=== PATIENT | male | born 1990 | race Caucasian/White ===

== ENCOUNTER 2016-11-09 20:32 | Emergency (ER) | payer SELFPAY ==
[2016-11-09 20:51] VITALS: BP 144/95; PULSE 78; RESP 16; TEMP 97.9; O2SAT 98
--- NOTE | 2016-11-09 20:52 | EDPHY ---
H & P Time Seen by Provider: 11/09/16 20:44 HPI/ROS: Chief Complaint: Bilateral ankle rash HPI: The patient presents to the ED with ankle rash which has been present for the past several weeks. The patient reports he developed this rash after working with heavy boots. The patient denies any prior history of diabetes or other significant medical problems. The patient denies IV drug use. The patient denies prior history of abscess or cellulitis. REVIEW OF SYSTEMS: Neuro: no headache, numbness, weakness Musculoskeletal: as above Skin: As above Source: Patient Exam Limitations: No limitations - Personal History Current Tetanus/Diphtheria Vaccine: Yes - Medical/Surgical History Hx Asthma: No Hx Chronic Respiratory Disease: No Hx Diabetes: No Hx Cardiac Disease: No Hx Renal Disease: No Hx Cirrhosis: No Hx Alcoholism: No Hx HIV/AIDS: No Hx Splenectomy or Spleen Trauma: No - Social History Smoking Status: Current every day smoker - Physical Exam Exam: General Appearance: Alert, no distress Eyes: Pupils equal and round no pallor or injection ENT, Mouth: Mucous membranes moist Respiratory: There are no retractions, lungs are clear to auscultation Cardiovascular: Regular rate and rhythm Gastrointestinal: Abdomen is soft and nontender, no masses, bowel sounds normal Neurological: A&O, normal motor function, normal sensory exam, normal cranial nerves Skin: Several pustular lesions noted to the skin around the ankle right greater than left suspicious for likely MRSA. No evidence of septic arthritis or necrotizing fasciitis clinically Musculoskeletal: Neck is supple nontender Extremities: symmetrical, full range of motion Allergies/Adverse Reactions: Sulfa (Sulfonamide Antibiotics) Allergy (Verified 11/09/16 20:45) PINK DYE Allergy (Uncoded 11/09/16 20:45) Home Medications: Medication Instructions Recorded Cbd 11/09/16 Cephalexin [Keflex] 500 mg PO QID #40 cap 11/09/16 Doxycycline Hyclate [Vibramycin 100 mg PO BID #20 cap 11/09/16 100 MG (*)] Medical Decision Making ED Course/Re-evaluation: The patient will be started on antibiotics including Keflex and doxycycline given his sulfa allergy for coverage of possible MRSA. Patient is instructed to follow up with our Infectious Disease [facility] for any unimproved symptoms after his treatment with antibiotics. Departure - Departure Disposition: Home, Routine, Self-Care Clinical Impression: Folliculitis Condition: Good Instructions: Folliculitis (ED) Additional Instructions: 1. Please take antibiotics as directed for next 10 days. 2. Please follow up with the Infectious Disease physician you have been referred to if your symptoms persist after antibiotic treatment. Referrals: Jim Nolasco MD [Medical Doctor] - As per Instructions
== END 2016-11-09 21:08 | disposition home or self-care (01) ==
LOC: CED 20:32
DX: L73.9 Follicular disorder, unspecified (principal); F17.200 Nicotine dependence, unspecified, uncomplicated